=== PATIENT | female | born 1970 | race Caucasian/White ===

== ENCOUNTER 2018-12-04 07:07 | Emergency (ER) | payer MEDICAID ==
[2018-12-04] MEDS: IBUPROFEN 600 MG TAB PO (08:24)
[2018-12-04] MEDS: ACETAMINOPHEN 500 MG TAB PO (08:24)
== END 2018-12-04 09:21 | disposition home or self-care (01) ==
LOC: FTE 07:07
DX: J02.0 Streptococcal pharyngitis (principal)
CPT/HCPCS: 99283; Z7502